=== PATIENT | female | born 1960 | race Caucasian/White ===

== ENCOUNTER → 2025-02-23 14:12 | Outpatient (REF) | payer OTHER, SELFPAY | LOC: WDC 14:12 | PROVIDERS: ATTENDING PHYSICIAN Obstetrics & Gynecology Gynecology; FAMILY PHYSICIAN Family Medicine | DX: Z12.31 Encounter for screening mammogram for malignant neoplasm of breast (principal) | CPT/HCPCS: 77063; 77067 ==

== ENCOUNTER 2025-04-05 00:12 | Emergency (ER) | payer OTHER, SELFPAY ==
[2025-04-05 00:14] VITALS: BP 190/106
[2025-04-05 00:43] VITALS: BMI 29.0
[2025-04-05 00:44] VITALS: BP 187/99
--- NOTE | 2025-04-05 00:46 | EDRN ---
Pt complains of heartburn that started around 2300. Pt drank water and sucked on a Tums but had to brush her teeth so she did not finish the Tums. Pt adds she has had neck pain all week. Pain is constant. Pt has been taking 1 advil daily for
neck pain. Pt denies injury to neck. Pain started as pain in R jaw that was intermittent then pt woke daily with neck pain 'like a heaviness on my neck.' No sob, abd pain, n/v, diaphoresis, fever/chills/cough. Pt ate hard pretzels and an apple
for dinner.
--- NOTE | 2025-04-05 00:47 | ED.GENMED ---
History of Present Illness
General
Chief Complaint: Chest Pain
Source: patient
Exam Limitations: none
Time Seen by Provider: 04/05/25 00:46
Nursing documentation reviewed up to this point in time: agreed with
History of Present Illness
History of Present Illness:
This is a 64-year-old female with no past medical history who presents emergency department today with concerns of pain/indigestion for the past 2 hours. Patient reports that she had dinner and then went to bed a few hours later and reports that
she woke up at around 11 PM with this pain. The pain seems to be worse with lying down and improves with sitting up. Patient reports that she has heartburn from time to time but she has never had this severe before. She did take a dose of Tums
which did not improve her symptoms. She denies any radiation of the pain to the back into the chest. Patient was concerned that she was having something wrong with her heart as she started to develop left-sided jaw pain as well that has since
subsided. She also states that she has been having posterior neck pain for the past week but denies any obvious inciting injury. She denies any associated headaches, nausea, vomiting. She has no personal history of cardiac disease but does have a
history of coronary disease in her mom and her sister. She does not smoke. She follows regularly with her primary care provider and states that she has no known history of high cholesterol or high blood pressure and states that she does have
whitecoat hypertension does not currently take any medication to control her blood pressure. Patient denies any rectal bleeding. She denies any dark tarry stools. She denies any regular NSAID use.
Review of Systems
Review of Systems
All Other Systems: ROS reviewed and negative except as documented in HPI and ROS
Phy Exam
Physical Exam
Physical Exam:
General: Patient is well appearing and in no acute distress; non-toxic
Skin: Warm and dry, no rashes or lesions
Head: Normocephalic, atraumatic
Eyes: Sclera non-icteric. EOMs intact.
Cardiac: Regular rate and rhythm, no murmurs
Pulm: Normal respiratory effort, no wheezes, rales, or rhonchi
Abdomen: Epigastric abdominal tenderness to palpation, negative Correia's sign
Neuro: CN II-XII intact, no focal neurologic deficits.
Psychiatric: Appropriate mood and affect.
Scores
Heart Score for Chest Pain Patients
STEMI patient?: No
History: Slightly or Non-Suspicious
ECG: Normal
Age: >45 - <65 years
Risk Factors: No Risk Factors
Troponin: </= Normal Limit
Heart Score for Chest Pain Patients: 1
Heart Score Risk: 2.5% MACE over next 6 weeks
Course
Orders/Labs/Results
Orders:
Orders
04/05/25 00:13
ECG [Electrocardiogram (*1)] Urgent
Reason for Study: Chest Pain
04/05/25 00:14
EKG- Treatment ONCE
04/05/25 00:56
Add On- LAB Urgent
Tests Added?: lipase
Complete Blood Count/With Diff Urgent
Comprehensive Metabolic Panel Urgent
Lipase Urgent
Comment: ADD ON
Troponin I Urgent
US Abdomen Complete/Upper Urgent
Reason For Exam: epigastric pain
04/05/25 00:57
Famotidine [Pepcid] 20 mg IV NOW STA
Pantoprazole [Protonix IV] 40 mg IV NOW STA
04/05/25 03:07
Ketorolac [Toradol] 15 mg IV NOW STA
04/05/25 03:20
Electrocardiogram (*1) Urgent
Reason for Study: Chest Pain
Abnormal Lab Results
04/05/25
00:56
MCH 31.4 H pg
(27.0-31.0)
Glucose 118 H mg/dl
(70-99)
04/05/25 00:56
04/05/25 00:56
Vital Signs
Initial and Last Documented VS:
Initial Vital Signs
Temp Pulse Resp BP Pulse Ox
97.8 F 80 20 190/106 98
04/05/25 00:14 04/05/25 00:14 04/05/25 00:14 04/05/25 00:14 04/05/25 00:14
Last Documented Vital Signs
Temp Pulse Resp BP Pulse Ox
97.8 F 70 15 155/87 95
04/05/25 00:14 04/05/25 03:30 04/05/25 03:30 04/05/25 03:30 04/05/25 01:00
MDM/Problems Addressed
Differential Diagnosis Includes:
Differentials include gastritis, duodenitis, GERD, ACS, pancreatitis, biliary colic
MDM/Problems Addressed:
64-year-old female presents emergency department today with concerns of epigastric pain which patient describes as indigestion. Patient has no cardiac history. Physical exam she is well-appearing in no acute distress she does have epigastric
tenderness to palpation with no guarding. Her abdominal ultrasound reveals multiple gallstones and sludge, as well as mild wall thickening however no pericholecystic fluid. Patient has no fever, normal white count, no vomiting, and her pain is
well-controlled, not suspect acute cholecystitis but rather biliary cholic. Did offer admission to continue to monitor patient's symptoms however patient states that she feels well enough to go home and will call to schedule follow-up with general
surgery. Return precautions discussed. Patient stable for discharge.
*Pulse Oximetry
Patient hypoxic: no
*EKG
Interpreted by ED Provider?: Yes
EKG Intrepretation Date: 04/04/25
Interpretation: normal
Comparison EKG: no comparison EKG present
Heart Rate: 89
Rate: normal
Rhythm: sinus
[place]: normal axis
*Critical Care Note
Total Time (30-74mins, 75-104mins- exclusive of procedures): Not Applicable
Data Reviewed
Review of Other/Old Records Reveals: Records (No previous ER physician documentation in [facility] to review, no discharge summary to review)
Patient Management
Escalation/DeEscalation of care consider admission/obs:
Admit not indicated, patient stable for discharge
Case discussed with ER attending
ED Attending Note
-
Portions of this chart may have been created with voice recognition software.� Occasional wrong word or��sound alike� substitutions may have occurred due to the inherent limitations of voice recognition software.
Discharge Plan
Departure
Patient Disposition: Home (Routine Discharge)
Date of Disposition: 04/05/25
Time of Disposition: 03:28
Patient with high blood pressure during this ER visit?: Yes
Condition: Good
Discharge Problem:
Biliary colic
Instructions: Gallstones - ED discharge instructions, BLOOD PRESSURE
Prescriptions:
No Action
oxybutynin chloride 15 mg Tablet Extended Release 24hr
15 mg PO Q48H
loratadine [Claritin] 10 mg Tablet
10 mg PO DAILY
Theracran
1 cap PO DAILY
Patient Comments:
pt unsure of mg
cholecalciferol (vitamin D3)
1 cap PO Q48H
Patient Comments:
pt does not know units
Referrals:
Twan Brothers MD [Active] - Call in 1-3 days for appt
Devang Hines MD [Family Provider] -
Activity Restrictions/Additional Instructions:
You were given a copy of your ultrasound.
Please follow-up with your primary care provider.
Please call the attached number to schedule follow up appointment with general surgery.
Avoiding fatty or greasy meals may help manage your symptoms.
DISCUSSED, PLEASE RETURN TO THE EMERGENCY DEPARTMENT SHOULD YOU DEVELOP FEVERS OR CHILLS, ACUTE WORSENING OF YOUR SYMPTOMS, INTRACTABLE NAUSEA OR VOMITING, YELLOWING OF THE SKIN OR EYES, CHEST PAIN, SHORTNESS OF BREATH, OR ANY OTHER SIGNS OR
SYMPTOMS RECENTLY.
Interventions
Interventions:
*Risk Screen - Suicide Last Done: 04/05/25 00:23
*General Assessment Last Done: 04/05/25 00:43
*Neglect/Abuse Screening Last Done: 04/05/25 00:23
*ED- Fall Risk Assessment Last Done: 04/05/25 01:11
*ED COVID-19 Vaccine History Last Done: 04/05/25 00:43
*Nursing Disposition Last Done: 04/05/25 03:40
ED- Cardiac Assessment Last Done: 04/05/25 01:00
Discharge Date and Time
Discharge Date/Time: 04/05/25 03:40
Print Language: TAJIK
[2025-04-05 01:00] VITALS: BP 191/98
[2025-04-05] MEDS: PROTONIX IV 40 MG IV (01:03)
[2025-04-05] MEDS: PEPCID 20 MG IV (01:06)
[2025-04-05 01:11] LABS: % Basophils 0.7 % (0-2); % Eosinophils 3.5 % (0-6); % Immature Granulocytes 0.4 % (0-0.5); % Lymphocytes 38.9 % (20.5-51.1); % Monocytes 6.7 % (1.7-9.3); % Neutrophils 49.8 % (42.2-75.2); Absolute Basophils 0.1 10^3/uL (0-0.2); Absolute Eosinophils 0.2 10^3/uL (0-0.7); Absolute Lymphocytes 2.7 10^3/uL (1.2-3.4); Absolute Monocytes 0.5 10^3/uL (0.1-0.6); Absolute Neutrophils 3.4 10^3/uL (1.4-6.5); Hematocrit 39.8 % (37.0-47.0); Hemoglobin 14.4 g/dL (12.0-16.0); Mean Corp Hgb Conc. 36.2 g/dL (33.0-37.0); Mean Corpuscular Hgb 31.4 pg (27.0-31.0); Mean Corpuscular Volume 86.7 fL (81.0-99.0); Mean Platelet Volume 9.3 fL (7.4-10.4); Nucleated Red Blood Cells % 0 %; Platelet Count 185 10^3/uL (130-400); Red Blood Cell Count 4.59 10^6/uL (4.20-5.40); Red Cell Dist. Width 12.2 % (11.5-14.5); White Blood Cell Count 6.9 10^3/uL (4.8-10.8)
[2025-04-05 01:22] LABS: ALT (SGPT) 26 U/L (0-35); AST (SGOT) 22 U/L (14-36); Albumin 4.7 g/dl (3.5-5.0); Alkaline Phosphatase 78 U/L (38-126); Blood Urea Nitrogen 14 mg/dl (7-17); Calcium 9.2 mg/dl (8.4-10.2); Carbon Dioxide 25 mmol/L (22-30); Chloride 105 mmol/L (98-107); Estimated Creatinine Clearance 90 ml/min; Glucose 118 mg/dl (70-99); Potassium 3.9 mmol/L (3.5-5.1); Sodium 142 mmol/L (135-145); Total Bilirubin 0.7 mg/dl (0.2-1.3); Total Protein 7.4 g/dl (6.3-8.2); eGFR > 60.00
[2025-04-05 01:27] LABS: Lipase 154 U/L (23-300)
[2025-04-05 01:33] LABS: Troponin I < 0.012 ng/ml
[2025-04-05 02:50] VITALS: BP 177/84
[2025-04-05] MEDS: TORADOL 15 MG IV (03:15)
[2025-04-05 03:30] VITALS: BP 155/87
== END 2025-04-05 03:40 | disposition home or self-care (01) ==
LOC: EMR 00:12
PROVIDERS: EMERGENCY PHYSICIAN Emergency Medicine; FAMILY PHYSICIAN Family Medicine
DX: K80.70 Calculus of gallbladder and bile duct without cholecystitis without obstruction (principal); R03.0 Elevated blood-pressure reading, without diagnosis of hypertension
CPT/HCPCS: 99285; 96374; 96375 ×2; 76700; 80053; 83690; 84484; 85025; 93005

== ENCOUNTER 2025-04-07 06:16 | Inpatient (IN) | payer OTHER, SELFPAY ==
[2025-04-06 20:37] VITALS: BP 155/106
[2025-04-06 23:10] VITALS: BP 148/88
[2025-04-07] VITALS (7 sets, daily range): BP systolic 154–172; BP diastolic 81–95; BMI 29.0; BMI 28.4
[2025-04-07 00:04] LABS: % Basophils 0.4 % (0-2); % Eosinophils 0.6 % (0-6); % Immature Granulocytes 0.2 % (0-0.5); % Lymphocytes 10.5 % (20.5-51.1); % Monocytes 4.1 % (1.7-9.3); % Neutrophils 84.2 % (42.2-75.2); Absolute Eosinophils 0.1 10^3/uL (0-0.7); Absolute Lymphocytes 0.9 10^3/uL (1.2-3.4); Absolute Monocytes 0.3 10^3/uL (0.1-0.6); Absolute Neutrophils 6.9 10^3/uL (1.4-6.5); Hematocrit 41.9 % (37.0-47.0); Hemoglobin 14.7 g/dL (12.0-16.0); Mean Corp Hgb Conc. 35.1 g/dL (33.0-37.0); Mean Corpuscular Hgb 31.1 pg (27.0-31.0); Mean Corpuscular Volume 88.8 fL (81.0-99.0); Mean Platelet Volume 9.3 fL (7.4-10.4); Nucleated Red Blood Cells % 0 %; Platelet Count 182 10^3/uL (130-400); Red Blood Cell Count 4.72 10^6/uL (4.20-5.40); Red Cell Dist. Width 12.3 % (11.5-14.5); White Blood Cell Count 8.3 10^3/uL (4.8-10.8)
[2025-04-07 00:27] LABS: ALT (SGPT) 718 U/L (0-35); AST (SGOT) 707 U/L (14-36); Albumin 4.3 g/dl (3.5-5.0); Alkaline Phosphatase 169 U/L (38-126); Blood Urea Nitrogen 13 mg/dl (7-17); Calcium 10.1 mg/dl (8.4-10.2); Carbon Dioxide 30 mmol/L (22-30); Chloride 100 mmol/L (98-107); Glucose 131 mg/dl (70-99); Potassium 4.1 mmol/L (3.5-5.1); Sodium 139 mmol/L (135-145); Total Bilirubin 5.9 mg/dl (0.2-1.3); Total Protein 7.5 g/dl (6.3-8.2); eGFR > 60.00
[2025-04-07 01:21] LABS: Lipase > 4000 U/L (23-300)
--- NOTE | 2025-04-07 02:06 | ED.GENMED ---
History of Present Illness
General
Chief Complaint: Abdominal Pain
Source: patient and records
Exam Limitations: none
Time Seen by Provider: 04/07/25 01:51
Nursing documentation reviewed up to this point in time: agreed with
History of Present Illness
History of Present Illness:
64-year-old female with past medical history of gallstones presents emergency department today with persistent epigastric pain for the past 4 days. She initially seen by me in the emergency department on April 05 and she was found to have some
gallbladder wall thickening and gallstones but no clear evidence of acute cholecystitis no evidence of obstruction. Her pain was well-controlled at the time, did offer admission but discussed close return precautions. Patient presents today and
she states that her pain is never gone away. She denies any fevers or chills. She started to notice that her urine appears dark. She has any burning with urination. She denies any chest pain or shortness of breath. She denies any syncopal
episodes.
Review of Systems
Review of Systems
All Other Systems: ROS reviewed and negative except as documented in HPI and ROS
Phy Exam
Physical Exam
Physical Exam:
General: Patient is well appearing and in no acute distress; non-toxic
Skin: Warm and dry, no rashes or lesions
Head: Normocephalic, atraumatic
Eyes: Sclera non-icteric. EOMs intact.
Cardiac: Regular rate and rhythm, no murmurs
Peripheral Vascular: No lower extremity swelling or edema
Pulm: Normal respiratory effort, no wheezes, rales, rhonchi
Abdomen: Epigastric abdominal tenderness to palpation, no rebound tenderness, no guarding
Neuro: CN II-XII intact, no focal neurologic deficits.
Psychiatric: Appropriate mood and affect.
Course
Orders/Labs/Results
Orders:
Orders
04/06/25 23:53
Complete Blood Count/With Diff Urgent
Comprehensive Metabolic Panel Urgent
Lipase Urgent
04/07/25 02:04
Ketorolac [Toradol] 15 mg IV NOW STA
04/07/25 02:05
Lactated Ringers [Lr] 1,000 ml IV BOLUS
04/07/25 02:15
CT Abd/pelvis W Iv Cont Urgent
Comment:
Reason For Exam: epigastric pain
04/07/25 Breakfast
NPO
Allow oral meds: Yes
Allow clear liquids: Sips of Clears
Flush (0.9% Sodium Chloride) [Flush (Nss)] See Dose Instructions IV PER PROTOCOL
04/07/25 06:03
Admit/Transfer Patient As Directed
Co-Sign Provider:
Level of Care: Inpatient admission
Assign to:: Medical/Surgical
Physician / Group: Michael
Diagnosis: Choledocholithiasis, Gallstone Pancreatitis
Reason for Hospitalization: Choledocholithiasis, Gallstone Pancreatitis
Expected length of stay greater than two midnights?: Yes
ELOS- Estimated Length of Stay in days: 3
I certify the patient meets the requirements for IP care: Yes
PRN Pain Medication Management As Directed
May give lesser potent ordered pain med per pt: Yes
preference::
Protocol:: Medication orders for pain may be administered in a
manner that supports deferring to patient preference
when the pt is:
- Requesting an ordered lesser potent pain medication.
Least to most potent pain medications are defined
as: acetaminophen < NSAID < tramadol < opioids
(morphine, oxycodone, hydromorphone).
- Requesting a lesser dose of the same medication IF
ORDERED.
- Requesting a less intrusive route of administration
if both routes are prescribed by the provider (PO <
IV).
04/07/25 06:04
Code Status As Directed
Resuscitation Status: Full Code
04/07/25 06:21
Acetaminophen [Tylenol] 650 mg PO Q4HPRN PRN
HYDROmorphone [Dilaudid] 0.5 mg IV Q4HPRN PRN
Ondansetron Injectable [Zofran] 4 mg IV Q6HPRN PRN
04/07/25 06:21
Consult Notification Routine
Specialty to Notify: Gastroenterology
Consult Notification Routine
Specialty to Notify: Surgical
GASTROINTESTINAL CONSULT Routine
Consulting Provider: Jaren Elizabeth
Was physician already notified: No
Reason for consult: Choledocholithiasis, Gallstone Pancreatitis
SURGICAL CONSULT Routine
Consulting Provider: Twan Brothers
Was physician already notified: No
Reason for consult: Cholelithiasis / Gallstone Pancreatitis
Activity As Directed
Activity Level: Ambulate
I/O [Intake/ Output] As Directed
Frequency: Per unit guidelines
Pneumatic Compression Sleeves As Directed
Type: Knee high
Vital Signs As Directed
Frequency: Per unit guidelines
Oxygen Therapy [O2 Therapy] [RESP] Routine
Titrate/Wean O2 to maintain O2 sat greater than (%): 94
DX Deep Vein Thrombosis Video Routine
04/07/25 07:00
Lactated Ringers [Lr] 1,000 ml IV 100 mls/hr
04/07/25 08:00
Pantoprazole [Protonix IV] 40 mg IV DAILY
Piperacillin/Tazo 3.375 Gram [Zosyn] 3.375 gram in 50 ml IV Q6H
04/08/25 06:00
Basic Metabolic Panel IN AM
Complete Blood Count/No Diff IN AM
LFT [Hqloo-Uyep-Inhlgtq] IN AM
Abnormal Lab Results
04/06/25
23:53
MCH 31.1 H pg
(27.0-31.0)
Absolute Neuts (auto) 6.9 H 10^3/uL
(1.4-6.5)
Absolute Lymphs (auto) 0.9 L 10^3/uL
(1.2-3.4)
Neutrophils % 84.2 H %
(42.2-75.2)
Lymphocytes % 10.5 L %
(20.5-51.1)
Glucose 131 H mg/dl
(70-99)
Total Bilirubin 5.9 H D mg/dl
(0.2-1.3)
AST 707 H* U/L
(14-36)
ALT 718 H* U/L
(0-35)
Alkaline Phosphatase 169 H U/L
(38-126)
Lipase > 4000 H* U/L
(23-300)
04/06/25 23:53
04/06/25 23:53
Vital Signs
Initial and Last Documented VS:
Initial Vital Signs
Temp Pulse Resp BP Pulse Ox
98.5 F 100 16 155/106 95
04/06/25 20:37 04/06/25 20:37 04/06/25 20:37 04/06/25 20:37 04/06/25 20:37
Last Documented Vital Signs
Temp Pulse Resp BP Pulse Ox
98.6 F 100 18 160/95 96
04/07/25 02:43 04/07/25 02:43 04/07/25 02:43 04/07/25 02:45 04/07/25 02:46
MDM/Problems Addressed
Differential Diagnosis Includes:
Differentials include acute cholecystitis, pancreatitis, gastritis,
MDM/Problems Addressed:
64-year-old female with past medical history of gallstones presents emergency department today with persistent epigastric pain for the past 4 days. She was diagnosed with gallstones few days prior. On physical exam she is well-appearing no acute
distress. She does have epigastric tenderness to palpation. Her lipase is greater than 4000 and she has a transaminitis with total bilirubin of 5.9. Her CT scan demonstrates a distended gallbladder with a gallstone near the fundus and wall
thickening however could represent systemic liver disease versus acute cholecystitis, in addition patient has normal-appearing pancreas, she has no fever her white count is normal. Discussed findings with my attending. Patient will require
admission for MRCP and further workup
*Pulse Oximetry
Patient hypoxic: no
*Critical Care Note
Total Time (30-74mins, 75-104mins- exclusive of procedures): Not Applicable
Data Reviewed
Review of Other/Old Records Reveals: Records (Reviewed ER physician documentation from 04/05/2025 by me patient seen for biliary colic)
Source: patient and records
ED Attending Note
-
Portions of this chart may have been created with voice recognition software.� Occasional wrong word or��sound alike� substitutions may have occurred due to the inherent limitations of voice recognition software.
Discharge Plan
Departure
Patient Disposition: Admit
Date of Disposition: 04/07/25
Time of Disposition: 04:40
Admit to: Med/Surg
Presentation/result/management discussed w/ accepting MD/DO: Hospitalist
Condition: Fair
Discharge Problem:
Acute pancreatitis, Biliary obstruction
Interventions
Interventions:
*Risk Screen - Suicide Last Done: 04/06/25 20:37
*General Assessment Last Done: 04/06/25 20:37
*Neglect/Abuse Screening Last Done: 04/06/25 20:37
*ED- Fall Risk Assessment Last Done: 04/06/25 20:37
*ED COVID-19 Vaccine History Last Done: 04/06/25 20:37
JI-Khmcuv-Aaxtjtxljk Assessment Last Done: 04/07/25 02:40
[2025-04-07] MEDS: LR 1000 IV ×3 (02:37→18:25)
[2025-04-07] MEDS: TORADOL 15 MG IV (02:38)
--- NOTE | 2025-04-07 06:05 | HPS.HSE ---
Family Physician
-
Family Physician: Devang Boles [facility]
Chief Complaint
-
Abd pain
History of Present Illness
Patient is a 64y F with PMH significant for OAB who presents to ED complaining of abdominal pain. Patient initially developed abdominal pain on Saturday evening. She was seen here in the ED and found to have evidence of gallstones. Her symptoms
improved while in the ED and she was discharged to home with instructions to follow-up with surgery. Patient states that she felt fairly well on Saturday; however, her pain returned and persisted for most of the day Saturday. Pain became more severe
with radiation into the back and increased pain with deep breathing or movement.
Patient denies any N/V, fevers / chills, diarrhea, etc.
She presented to the ED this evening for further evaluation.
Medical History
Past Medical History
Past Medical History: Reports Other
Additional Past Medical History:
OAB
Cholelithiasis
Past Surgical History: Reports Other
Additional Past Surgical History:
Hernia repair x 2
Social History
Tobacco: Non-smoker
Alcohol: Occasional
Drug: None
Family History
Family History: Not pertinent
Allergies / Home Medications
Allergies reflects when Allergies were last updated in [employer].
Home Medications with original date entered in [employer]
Allergy/Medication List:
Allergies
Allergy/AdvReac Type Severity Reaction Status Date / Time
No Known Allergies Allergy Unverified 04/05/25 00:44
Home Medications
Theracran 1 cap PO DAILY 04/05/25
cholecalciferol (vitamin D3) 1 cap PO Q48H 04/05/25
loratadine 10 mg tablet (Claritin) 10 mg PO DAILY 04/05/25
oxybutynin chloride 15 mg tablet,extended release 24 hr 15 mg PO Q48H 04/05/25
Review of Systems
-
History Source: Patient
A 12 point ROS was completed and negative except as noted: Yes
Constitutional: Denies Fever or Chills
Respiratory: Denies Cough or Trouble Breathing
Cardiac: Denies Chest Pain or Palpitations
Abdomen/GI: Reports Abdominal Pain; Denies Nausea, Vomiting or Diarrhea
: Reports Flank Pain; Denies Dysuria or Frequency
Musculoskeletal: Denies Joint Pain or Edema
Neurological: Denies Dizzy or Headache
Physical Exam
Vital Signs
Vital Signs
Temp Pulse Resp BP Pulse Ox
98.6 F 100 18 160/95 96
04/07/25 02:43 04/07/25 02:43 04/07/25 02:43 04/07/25 02:45 04/07/25 02:46
Physical Exam
General: Other (64y F in no acute distress.)
HEENT: Moist mucous membranes and PERRLA
Respiratory: Clear; No Wheezes, Rales or Rhonchi
Cardiac: S1/S2 and Tachycardia; No Murmur
GI: Soft, Non Distended, Normal Bowel Sounds and Other (Pos RUQ tenderness / No guarding or rebound.)
Musculoskeletal: No Clubbing, No Cyanosis and No Edema
Neuro: AO x 3
Laboratory Results
-
04/06/25 23:53
04/06/25 23:53
Laboratory Results
Total Bilirubin 5.9 mg/dl (0.2-1.3) H D 04/06/25 23:53
AST 707 U/L (14-36) H* 04/06/25 23:53
ALT 718 U/L (0-35) H* 04/06/25 23:53
Alkaline Phosphatase 169 U/L (38-126) H 04/06/25 23:53
Lipase > 4000 U/L (23-300) H* 04/06/25 23:53
Impression/Plan
-
A/P: Patient is a 64y F with PMH significant for OAB who presents to ED complaining of abdominal pain.
Cholelithiasis / Choledocholithiasis
Gallstone Pancreatitis
+/- Acute Cholecystitis
- Admit for further evaluation and treatment.
- US done 04/05 showed stones and sludge without wall thickening, etc. CBD was 9.8mm.
- CT done today shows stone near fundus, wall thickening up to 1 cm and CBD = 10mm.
- LFTs were normal on 04/05 and now significantly abnormal including bili = 5.9.
- NPO, IVFs, pain control, supportive care.
- GI and Surgery evaluations for additional recommendations.
- Follow for any new / worsening symptoms.
- Will cover with Zosyn for now given wall thickening, tachycardia, etc.
OAB
- Stable. Hold PO meds including oxybutynin acutely.
DVT Prophylaxis: SCDs
Code Status: Full
--- NOTE | 2025-04-07 07:39 | CON.GI ---
Addendum entered and electronically signed by Jaren Elizabeth MD 04/07/25 12:56:
I saw and examined the patient.
The MACHINERY CLEANER's note was reviewed and I agree with the note.
--Abdominal pain/elevated LFTs/lipase/imaging showing dilated CBD and cholelithiasis with GB wall thickening and pericholecystic fluid
plan
NPO
Continue IVF
continue antibiotics started by medical team for now
Will get MRI/MRCP for further evaluation of CBD dilatation and rule out CBD stone. If positive for CBD stone will arrange ERCP prior to cholecystectomy
Surgical eval
Continue trend LFT
Original Note:
Consultation
-
Date/Time Consultation Requested: 04/07/25 0620
Date/Time Consultation Performed: 04/07/25 0800
Requesting Provider: Александр Rodriguez DO
Performing Provider: SWETA Vinson, Jaren Elizabeth MD
Reason for Consultation: abdominal pain, increased LFT's
Medical History
Chief Complaint / HPI
Chief Complaint: abdominal pain
History of Present Illness:
Pt is a 64yo with hx colon polyps, overactive bladder on Oxybutynin presents with onset of GERD, abdominal pain, chest and neck pain. She was initially was seen 04/05 with normal LFT's and lipase with negative troponin. She was given Toradol, PPI and
Famotidine with improvement. She was discharged but had recurrent symptoms. On return she was noted with bili 5.9, AST 707, ALT 718, alk phos 169 and lipase >4000. WBC's normal with low grade fever. 04/05 initial US with multiple gallstones,
sludge, distended GB without wall thickening and neg correia sign, CBD 9.8mm with fatty liver. Repeat imaging with Ct on return with cholelithiasis with distention of gallbladder of wall and pericholecystic fluid CB D 1 cm suggest acute
cholecystitis , fatty liver and diverticulosis. No anticoagulation and rare NSAID use. No GPL1 use. No recent change in diet.
At this time pt states some improved pain to 3/10 was 8/10 at peak. She also admits to dark urine, rodriguez loose stools last week but denies odynophagia, dysphagia, nausea, vomiting, constipation or rectal bleeding.
Past Medical History
Past Medical History: Other (cholelithiasis, overactive bladder , colon polyps)
Past Surgical History: Other (hernia repair x 2 )
Social History
Tobacco: Non-Smoker
Alcohol: Occasional
Drug: None
Living: With Family
Employment: Not Employed
Family History
Family History: Other (mother and sister with hx andre)
Allergies / Home Medications
Allergy/AdvReac Type Severity Reaction Status Date / Time
No Known Allergies Allergy Unverified 04/05/25 00:44
�Medication �Instructions �Recorded
Theracran 1 cap PO DAILY 04/05/25
cholecalciferol (vitamin D3) 1 cap PO Q48H 04/05/25
loratadine 10 mg tablet (Claritin) 10 mg PO DAILY 04/05/25
oxybutynin chloride 15 mg 15 mg PO Q48H 04/05/25
tablet,extended release 24 hr
Review of Systems
-
History Source: Patient and Family
Constitutional: Reports Fever (low grade )
EENT: Reports No Symptoms
Respiratory: Reports No Symptoms
Cardiac: Reports Chest Pain (at onset with neck pain)
Abdomen/GI: Reports Abdominal Pain, Diarrhea (last week loose and rodriguez) and Other (increased GED)
: Reports Dark Urine
Musculoskeletal: Reports No Symptoms
Skin: Reports No Symptoms
Neurological: Reports No Symptoms
Endocrine: Reports No Symptoms
Hematologic/Lymphatic: Reports No Symptoms
Vital Signs
Temp Pulse Resp BP Pulse Ox
98.6 F 100 18 160/95 96
04/07/25 02:43 04/07/25 02:43 04/07/25 02:43 04/07/25 02:45 04/07/25 02:46
Physical Exam
Exam
General: Well Developed, Well Nourished and No Apparent Distress
HEENT: Normocephalic and Anicteric
Respiratory: Clear
Cardiac: Other (tachy)
GI: Soft, Non Distended and Tender (epigastric )
Musculoskeletal: No Clubbing and No Cyanosis
Skin: Warm and Dry
Neuro: Awake, Alert and AO x 3
Psych: Calm
Results
WBC 8.3 10^3/uL (4.8-10.8) 04/06/25 23:53
Hgb 14.7 g/dL (12.0-16.0) 04/06/25 23:53
Hct 41.9 % (37.0-47.0) 04/06/25 23:53
MCV 88.8 fL (81.0-99.0) 04/06/25 23:53
Plt Count 182 10^3/uL (130-400) 04/06/25 23:53
Absolute Neuts (auto) 6.9 10^3/uL (1.4-6.5) H 04/06/25 23:53
Sodium 139 mmol/L (135-145) 04/06/25 23:53
Potassium 4.1 mmol/L (3.5-5.1) 04/06/25 23:53
Chloride 100 mmol/L (98-107) 04/06/25 23:53
Carbon Dioxide 30 mmol/L (22-30) 04/06/25 23:53
BUN 13 mg/dl (7-17) 04/06/25 23:53
Creatinine 0.8 mg/dL (0.6-1.0) 04/06/25 23:53
Calcium 10.1 mg/dl (8.4-10.2) 04/06/25 23:53
Total Bilirubin 5.9 mg/dl (0.2-1.3) H D 04/06/25 23:53
AST 707 U/L (14-36) H* 04/06/25 23:53
ALT 718 U/L (0-35) H* 04/06/25 23:53
Alkaline Phosphatase 169 U/L (38-126) H 04/06/25 23:53
Lipase > 4000 U/L (23-300) H* 04/06/25 23:53
Diagnostic Image Results:
04/05/ US abdomen
Multiple small gallstones as well as a small amount of mobile sludge. Gallbladder is distended, with no evidence for gallbladder wall thickening and a negative sonographic Correia's sign.
Common bile duct is dilated, measuring up to 9.8 mm. No sonographic evidence for bile duct calculus.
Diffuse fatty infiltration of the liver. Mild focal fatty sparing adjacent to gallbladder fossa.
04/07/25 CT A/p
There is cholelithiasis with distention of the gallbladder thickening of the wall and pericholecystic fluid. Common bile duct is dilated at 1 cm. This suggests acute cholecystitis.
There is fatty infiltration of the liver
There is diverticulosis but no evidence of diverticulitis
Prior GI Procedures:
EGD: none
Colonoscopy: [address] Davis with polyps
Assessment / Plan
-
Pt is a 64yo with hx colon polyps, overactive bladder on Oxybutynin presents with onset of GERD, abdominal pain, chest and neck pain. She was initially was seen 04/05 with normal LFT's and lipase with negative troponin. She was given Toradol, PPI and
Famotidine with improvement. She was discharged but had recurrent symptoms. On return she was noted with bili 5.9, AST 707, ALT 718, alk phos 169 and lipase >4000. WBC's normal with low grade fever. 04/05 initial US with multiple gallstones,
sludge, distended GB without wall thickening and neg correia sign, CBD 9.8mm with fatty liver. Repeat imaging with Ct on return with cholelithiasis with distention of gallbladder of wall and pericholecystic fluid CB D 1 cm suggest acute
cholecystitis , fatty liver and diverticulosis. No anticoagulation and rare NSAID use. No GPL1 use. No recent change in diet.
-sudden onset abdominal pain with elevated LFT's and lipase concern for possible gallstone pancreatitis vs acute cholecystitis
-CBD dilation on imaging
-cholelithiasis
-low grade fever
-fatty liver
-hx colon polyps
-overactive bladder
PLAN:
Etiology of symptoms with concern for possible gallstone pancreatitis vs acute cholecystitis vs other
US and CT with ductal dilation and cholelithiasis
will order MRI with MRCP add ativan prior to claustrophobia(discussed alternative EUS(uable to do today) vs IOC)
trend labs
await surgical eval
cont abx
aggressive IVF s/p bolus just given in ER will increase IVF to 150ml/hr
pain control
family updated
-
-
Thank you for consultation and allowing me to participate in the patient's care. Please call the phone triage specialist GI physician during the after hours with any questions or concerns.
[2025-04-07] MEDS: PROTONIX IV 40 MG IV (08:26)
[2025-04-07] MEDS: ZOSYN 50 IV ×3 (08:27→19:40)
--- NOTE | 2025-04-07 08:40 | W.PN.HOSP.TC ---
Today's Communication/Plan
-
F/u with GI
MRI pending
Assessment / Plan
Assessment / Plan
Gallstone pancreatitis
Acute Cholecystitis with cholelithiasis:
- Abdominal US done 04/05 showed gallstones/ sludge/negative sonographic Correia sign without wall thickening/CBD was 9.8mm.
- Abdominal CT 04/07 shows stone near fundus, wall thickening up to 1 cm and CBD = 10mm.
- LFTs were normal on 04/05 and now bilirubin is 5.9, AST is 707, and ALT is 718
- Continue IV zoysn, NPO, IVFs with lactated ringers, pain control with Dilaudid and Tylenol, supportive care.
- MRI ordered by GI for better visualization of common bile duct and for assessment of future treatment modalities. Concerned for gallstone pancreatitis due to lab/imagining findings.
- Based on patients clinical presentation, labs, and imaging findings on CT, will plan for laparoscopic cholecystectomy once ERCP has been confirmed/ performed. Will explain to patient risks/benefits of procedure.
Overactive bladder:
- Hold oxybutynin
Anticipated Discharge: 24 - 48 hours
Subjective/Interval History
-
Date of Service: April 07, 2025
Pt is a 64 year old female with overactive bladder presents with severe right upper quadrant abdominal pain. She initially presented on 04/05/25 with severe upper abdominal pain a few hours after eating dinner with radiation to her jaw, however EKG
was negative, labs showed normal bilirubin, LFT's, and an abdominal ultrasound showed multiple gallstones with thickening of CBD to 9.8 mm. She was then discharged home with instructions to call surgery and schedule f/u with general surgery. The
next day she felt heartburn symptoms all day long without improvement on taking tums.
Then today morning, pain returned and it was more severe, and also started to radiate to the back. No nausea/vomiting/ fever/ chills.
Labs show normal wbc, total bili elevated at 5.9, AST 707, and AST 718
CT scan was ordered and confirms findings suggestive of acute cholecystitis.
Objective Data
-
Labs:
Laboratory Results
04/06/25
23:53
WBC 8.3
Hgb 14.7
Hct 41.9
Plt Count 182
Sodium 139
Potassium 4.1
Chloride 100
Carbon Dioxide 30
BUN 13
Creatinine 0.8
Glucose 131 H
Calcium 10.1
Total Bilirubin 5.9 H D
AST 707 H*
ALT 718 H*
Alkaline Phosphatase 169 H
Vital Signs:
Vital Signs
Temp Pulse Resp BP Pulse Ox
99.8 F 106 16 154/82 94
04/07/25 07:49 04/07/25 07:49 04/07/25 07:49 04/07/25 07:49 04/07/25 07:49
I&O
04/06/25 04/07/25 04/08/25
06:59 06:59 06:59
Intake Total 50 / 50
Balance 50 / 50
Review of Systems
-
History Source: Patient
All other systems: Reviewed and negative
Abdomen/GI: Reports Abdominal Pain (right upper quadrant pain)
Physical Exam
-
General: Well Developed
Respiratory: Clear to Auscultation; Negative Wheezes, Rales or Rhonchi
Cardiac: Regular Rhythm; Negative S1/S2, Irregular Rhythm or Murmur
GI: Soft, Nondistended, Normal Bowel Sounds and Tender (right upper quadrant tenderness on palpation)
Musculoskeletal: No Clubbing, No Cyanosis and No Edema
Skin: Warm and Dry
Neuro: Awake, Alert, Oriented and AO x 3
Psych: Calm
Data Reviewed
-
CT Scan: Report Reviewed by me and Discussed with Physician
Labs: Labs Reviewed by me and Discussed with Physician
[2025-04-07 10:22] LABS: PT 14.7 Sec (11.4-14.6)
--- NOTE | 2025-04-07 10:54 | CON.GS ---
Addendum entered and electronically signed by Twan Brothers MD 04/07/25 15:17:
I saw and examined the patient.
The resident's note was reviewed and I agree with the note with following corrections/additions.
Comment: Bounce back to ED after eval and DC 04/05 - normal labs at that time, returned 24 hrs late with elevated LFTs after recurrent upper ab pain. Presently pain has resolved. Denies f/c/n/v, denies changes to stool/urine, exam very mild ttp to
RUQ/epigastrum. Imaging shows dilated ducts, distended GB with PCF on CT. PLan for MRI to r/o choledocholithiasis. GS will follow. IV abx empirically.
Original Note:
Consultation
-
Date/Time Consultation Requested: 04/07/2025 06:21AM
Date/Time Consultation Performed: 04/07/2025 9:30 AM
Requesting Provider: Александр Sanabria
Performing Provider: Twan Hernandez
Reason for Consultation: Gallstone pancreatitis
Medical History
-
Chief Complaint: Severe abdominal pain
History of Present Illness:
Pt is a 64 year old female with overactive bladder presents with severe right upper quadrant abdominal pain. She initially presented on 04/05/25 with severe upper abdominal pain a few hours after eating dinner with radiation to her jaw, however EKG
was negative, labs showed normal bilirubin, LFT's, and an abdominal ultrasound showed multiple gallstones with thickening of CBD to 9.8 mm. She was then discharged home with instructions to call surgery and schedule f/u with general surgery. The
next day she felt heartburn symptoms all day long without improvement on taking tums.
Then today morning, pain returned and it was more severe, and also started to radiate to the back. No nausea/vomiting/ fever/ chills.
Labs show normal wbc, total bili elevated at 5.9, AST 707, and AST 718
CT scan was ordered and confirms findings suggestive of acute cholecystitis
Past Medical History
Past Medical History: Other (overactive bladder)
Social History
Tobacco: Non-Smoker
Alcohol: Occasional
Drug: None
Family History
Family History: Reviewed & Not Pertinent
Allergies / Home Medications
Allergy/AdvReac Type Severity Reaction Status Date / Time
No Known Allergies Allergy Unverified 04/05/25 00:44
�Medication �Instructions �Recorded �Confirmed �Type
cholecalciferol (vitamin D3) 25 25 mcg PO Q48H 04/05/25 04/07/25 History
mcg (1,000 unit) tablet (Vitamin
D3)
cranberry 500 mg capsule 500 mg PO DAILY 04/05/25 04/07/25 History
loratadine 10 mg tablet (Claritin) 10 mg PO DAILY 04/05/25 04/07/25 History
oxybutynin chloride 15 mg 15 mg PO Q48H@0800 04/05/25 04/07/25 History
tablet,extended release 24 hr
calcium carbonate (Tums) 200 mg PO QIDPRN PRN gerd 04/07/25 04/07/25 History
ibuprofen 100 mg chewable tablet 200 mg PO BIDPRN PRN mild pain 04/07/25 04/07/25 History
naproxen sodium 220 mg tablet 220 mg PO [id number] PRN mild pain 04/07/25 04/07/25 History
(Aleve)
Review of Systems
-
History Source: Patient
All other systems: Negative unless noted
Abdomen/GI: Abdominal Pain (epigastric abdominal pain)
A 10 point review of systems was completed, and was negative except as per HPI.
Physical Exam
Vital Signs
Temp Pulse Resp BP Pulse Ox
99.8 F 106 16 154/82 94
04/07/25 07:49 04/07/25 07:49 04/07/25 07:49 04/07/25 07:49 04/07/25 07:49
04/06/25 04/07/25 04/08/25
06:59 06:59 06:59
Actual Weight 84 kg
Body Mass Index (BMI) 29.0
Lab Results
04/06/25 23:53
04/06/25:53
WBC 8.3 10^3/uL (4.8-10.8) 04/06/25:53
Hgb 14.7 g/dL (12.0-16.0) 04/06/25:53
Hct 41.9 % (37.0-47.0) 04/06/25:53
Plt Count 182 10^3/uL (130-400) 04/06/25:
Abs Immat Gran (auto) 0.0 10^3/uL (0-0.05) 04/06/25:53
Neutrophils % 84.2 % (42.2-75.2) H 04/06/25:53
Physical Exam
General: Well Developed
Respiratory: Clear; Negative Wheezes, Rales or Rhonchi
Cardiac: S1/S2 and Regular Rhythm; Negative Murmur
GI: Soft, Non Distended, Normal Bowel Sounds and Tender (Epigastric tenderness on palpation)
Musculoskeletal: No Clubbing, No Cyanosis and No Edema
Skin: Warm and Dry
Neuro: Awake, Alert, Oriented and AO x 3
Psych: Calm
Data Reviewed
-
CT Scan: Report Reviewed by me and Discussed with Physician
Ultrasound: Report Reviewed by me and Discussed with Physician
Labs: Labs Reviewed by me and Discussed with Physician
Assessment / Plan
-
Gallstone pancreatitis
Acute Cholecystitis with cholelithiasis:
- Abdominal US done 04/05 showed gallstones/ sludge/negative sonographic Correia sign without wall thickening/CBD was 9.8mm.
- Abdominal CT 04/07 shows stone near fundus, wall thickening up to 1 cm and CBD = 10mm.
- LFTs were normal on 04/05 and now bilirubin is 5.9, AST is 707, and ALT is 718
- Continue IV zoysn, NPO, IVFs with lactated ringers, pain control with Dilaudid and Tylenol, supportive care.
- MRI ordered by GI for better visualization of common bile duct and for assessment of future treatment modalities. Concerned for gallstone pancreatitis due to lab/imagining findings.
- Based on patients clinical presentation, labs, and imaging findings on CT, will plan for laparoscopic cholecystectomy once ERCP has been confirmed/ performed. Will explain to patient risks/benefits of procedure.
Overactive bladder:
- Hold oxybutynin
--- NOTE | 2025-04-07 11:53 | W.PN.HOSP.TC ---
Today's Communication/Plan
-
Continue IV Zosyn and IVF
NPO for now
Follow-up MRCP/MRI
Plan for likely ERCP with cholecystectomy after
Trend CBC, LFTs, abdomen exam
Assessment / Plan
Assessment / Plan
#Gallstone pancreatitis
#Choledocholithiasis
#Suspected acute cholecystitis
-Presented with abdomen pain; OP ultrasound on 04/05 with cholelithiasis without wall thickening
-CT A/P on arrival shows gallstone near fundus of the gallbladder, wall thickening of 1 cm
-LFTs elevated here with bilirubin 5.9; labs were normal as of 04/05; likely dropped stone
-On arrival was made n.p.o. and started on IVF, started on IV Zosyn for possible cholecystitis
-GI recommended MRI/MRCP to assess for choledocholithiasis, likely ERCP
-General Surgery planning for cholecystectomy after GI procedures
-Continue IV Zosyn for now, follow-up MRI/MRCP; trend LFT + CBC + temp
-Continue with serial abdominal exams
-Maintenance IVF with HCT goal <44%
-Analgesics and antiemetics
#Overactive bladder
-Home regimen includes oxybutynin, held due to n.p.o. status
#H/O hernia repair x 2
Diet: N.p.o.
DVT prophylaxis: SCD
CODE STATUS: Full code
Anticipated Discharge: > 48 hours
Subjective/Interval History
-
Date of Service: April 07, 2025
Seen and examined at the bedside in the ED. No acute event since admission. AFVSS this morning
No a.m. labs to review, did have elevated transaminases and lipase yesterday
Patient states her symptoms are currently well-controlled, denies new complaints
Objective Data
-
Labs:
Laboratory Results
04/06/25 04/07/25
23:53 10:00
WBC 8.3
Hgb 14.7
Hct 41.9
Plt Count 182
PT 14.7 H
INR 1.10
Sodium 139
Potassium 4.1
Chloride 100
Carbon Dioxide 30
BUN 13
Creatinine 0.8
Glucose 131 H
Calcium 10.1
Total Bilirubin 5.9 H D
AST 707 H*
ALT 718 H*
Alkaline Phosphatase 169 H
Vital Signs:
Vital Signs
Temp Pulse Resp BP Pulse Ox
99.8 F 106 16 154/82 94
04/07/25 07:49 04/07/25 07:49 04/07/25 07:49 04/07/25 07:49 04/07/25 07:49
I&O
04/06/25 04/07/25 04/08/25
06:59 06:59 06:59
Intake Total 50 / 50
Balance 50 / 50
Review of Systems
-
History Source: Patient
All other systems: Reviewed and negative
Physical Exam
-
General: Well Developed, No Apparent Distress and Comfortable
HEENT: Normocephalic, Atraumatic, Moist Mucous Membranes and Anicteric
Respiratory: Clear to Auscultation and Non Labored Respirations; Negative Accessory Resp Muscle Use
Cardiac: Regular Rhythm and S1/S2; Negative Murmur, Rub or Gallop
GI: Soft, Nondistended, Normal Bowel Sounds and Tender (RUQ, Correia positive)
Musculoskeletal: No Clubbing, No Cyanosis and No Edema
Skin: Warm, Dry and Normal Turgor; Negative Rash
Neuro: AO x 3 and Nonfocal/Grossly Intact
Psych: Calm
Data Reviewed
-
Labs: Labs Reviewed by me, Discussed with Patient and Discussed with Family
[2025-04-07] MEDS: LR IV (13:53)
[2025-04-07] MEDS: ATIVAN 0.5 MG IV (20:53)
[2025-04-08] VITALS (8 sets, daily range): BP systolic 123–162; BP diastolic 67–89
[2025-04-08] MEDS: ZOSYN 50 IV ×2 (01:56→07:49)
[2025-04-08] MEDS: LR 1000 IV (05:10)
[2025-04-08] MEDS: NSS (PRESERVATIVE FREE) 10 ML IV (07:49)
[2025-04-08] MEDS: PROTONIX IV 40 MG IV (07:49)
[2025-04-08 09:19] LABS: % Basophils 0.4 % (0-2); % Eosinophils 2.1 % (0-6); % Immature Granulocytes 0.6 % (0-0.5); % Lymphocytes 10.2 % (20.5-51.1); % Monocytes 6.3 % (1.7-9.3); % Neutrophils 80.4 % (42.2-75.2); Absolute Eosinophils 0.1 10^3/uL (0-0.7); Absolute Lymphocytes 0.5 10^3/uL (1.2-3.4); Absolute Monocytes 0.3 10^3/uL (0.1-0.6); Absolute Neutrophils 4.2 10^3/uL (1.4-6.5); Hematocrit 36.7 % (37.0-47.0); Hemoglobin 12.9 g/dL (12.0-16.0); Mean Corp Hgb Conc. 35.1 g/dL (33.0-37.0); Mean Corpuscular Hgb 30.9 pg (27.0-31.0); Nucleated Red Blood Cells % 0 %; Red Blood Cell Count 4.17 10^6/uL (4.20-5.40); Red Cell Dist. Width 12.4 % (11.5-14.5); White Blood Cell Count 5.2 10^3/uL (4.8-10.8)
[2025-04-08 10:14] LABS: ALT (SGPT) 574 U/L (0-35); AST (SGOT) 344 U/L (14-36); Albumin 3.6 g/dl (3.5-5.0); Alkaline Phosphatase 213 U/L (38-126); Blood Urea Nitrogen 8 mg/dl (7-17); Calcium 8.6 mg/dl (8.4-10.2); Carbon Dioxide 25 mmol/L (22-30); Chloride 102 mmol/L (98-107); Estimated Creatinine Clearance 89 ml/min; Glucose 90 mg/dl (70-99); Potassium 3.6 mmol/L (3.5-5.1); Sodium 137 mmol/L (135-145); Total Bilirubin 5.7 mg/dl (0.2-1.3); Total Protein 6.2 g/dl (6.3-8.2); eGFR > 60.00
[2025-04-08 11:09] LABS: Mean Platelet Volume 9.4 fL (7.4-10.4); Platelet Count 142 10^3/uL (130-400)
--- NOTE | 2025-04-08 11:28 | W.PN.GS2 ---
Addendum entered and electronically signed by Twan Brothesr MD 04/08/25 11:41:
I saw and examined the patient.
The Roving Department Supervisor's note was reviewed and I agree with the note.
Comment: OR today for CCY. Informed consent obtained. D/w pt and . All ?s answered
Original Note:
Today's Communication / Plan
-
OR today
Assessment / Plan
-
64 yo female presenting with suspected gb mediated pancreatitis and likely acute calculous cholecystitis with CBD dilation on US/CT and elevated LFT's/lipase.
MRCP done in follow up with no choledocholithiasis present, evidence of cholecystitis present as well as severe diffuse hepatic steatosis noted.
AFVSS
No leukocytosis
LFT's remain elevated although slight downtrend today
Minimal ruq tenderness on exam
--Continue IV ABX
--NPO for OR today for RAL cholecystectomy
--Trend labs
Subjective Data
-
Date of Service: April 08, 2025
Patient seen and examined at bedside with Dr. Brothers. Denies n/v. RUQ discomfort present but manageable.
Objective Data
-
Intake and Output
04/07/25 04/08/25 04/09/25
06:59 06:59 06:59
Intake Total 1070 / 1070
Balance 1070 / 1070
Intake:
Oral fluids 120 / 120
IV fluids (Total) 900 / 900
IV piggybacks 50 / 50
Other:
Number of approximated MODERATE 1
amounts of urine
Vital Signs
Temp Pulse Resp BP Pulse Ox
99.1 F 86 16 153/89 95
04/08/25 07:50 04/08/25 07:50 04/08/25 07:50 04/08/25 07:50 04/08/25 07:50
Lab Results
04/08/25 08:21
04/08/25 08:21
Calcium 8.6 mg/dl (8.4-10.2) D 04/08/25 08:21
Total Bilirubin 5.7 mg/dl (0.2-1.3) H 04/08/25 08:21
Direct Bilirubin Cancelled 04/08/25 06:00
AST 344 U/L (14-36) H 04/08/25 08:21
ALT 574 U/L (0-35) H* 04/08/25 08:21
Alkaline Phosphatase 213 U/L (38-126) H 04/08/25 08:21
Total Protein 6.2 g/dl (6.3-8.2) L 04/08/25 08:21
Albumin 3.6 g/dl (3.5-5.0) 04/08/25 08:21
Physical Exam
-
NAD
ABD soft, nd, mild RUQ tenderness
--- NOTE | 2025-04-08 11:31 | CM ---
Addendum entered by Ashley Robb 04/08/25 15:30:
Patient clear for d/c today
No CM needs identified at this time
Original Note:
Patient resting, spoke w/ spouse. Initial assessment completed. Patient is a 64y F with PMH significant for OAB who presents to ED complaining of abdominal pain. On room air. IV Zofran. IVF. NPO for now.
Patient resides w/ spouse in a 2ST[facility]- 2 steps to enter. Independent w/ walking and ADLs, no device required. Patient has grab bar and shower chair that was inherited w/ the house from her [id number]-gh-tcg. No SNF/HC hx reported.
Address, point of contact and insurance verified
PCP: Devang Hines
Pharmacy: [facility]
Plan: Home, no needs likely
--- NOTE | 2025-04-08 11:45 | W.PN.HOSP.TC ---
Today's Communication/Plan
-
Continue IV Zosyn
OR at 3 PM today
IV fluids
Trend LFT
Assessment / Plan
Assessment / Plan
#Gallstone pancreatitis
#Acute calculus cholecystitis
-Presented with abdomen pain; OP ultrasound on 04/05 with cholelithiasis without wall thickening
-CT A/P on arrival shows gallstone near fundus of the gallbladder, wall thickening of 1 cm
-LFTs elevated here with bilirubin 5.9; labs were normal as of 04/05; likely dropped stone
-On arrival was made n.p.o. and started on IVF, started on IV Zosyn for possible cholecystitis
-MRCP was ultimately negative for choledocholithiasis, LFTs now downtrending
-Continue IV Zosyn for now; LFTs + CBC + temp + abdominal exams
-Maintenance IVF with HCT goal <44%
-Analgesics and antiemetics
-NPO for OR today
#Fatty liver
-Differentials include NAFLD versus KIERAN, per history she is occasional alcohol consumer
-Imaging here showed diffuse and severe fatty liver disease of unclear origin
-LFTs were elevated in the context of gallstone pancreatitis, now downtrending
-Will encourage alcohol avoidance, 30 minutes aerobic activity daily, Mediterranean diet
-Can consider SGLT1i or SGLT2i as there is some evidence of benefit with NAFLD
#Overactive bladder
-Home regimen includes oxybutynin, held due to n.p.o. status
#H/O hernia repair x 2
Diet: N.p.o. for OR today
DVT prophylaxis: SCD
CODE STATUS: Full code
Anticipated Discharge: 24 - 48 hours
Subjective/Interval History
-
Date of Service: April 08, 2025
Seen and examined at the bedside. No acute events reported overnight. AFVSS as of this morning
LFTs improving. MRCP yesterday negative for choledocholithiasis. States that her abdomen pain is mild, denies new complaints
Planning for OR at 3 PM today for cholecystectomy
Objective Data
-
Labs:
Laboratory Results
04/08/25
08:21
WBC 5.2
Hgb 12.9
Hct 36.7 L
Plt Count 142 D
Sodium 137
Potassium 3.6
Chloride 102
Carbon Dioxide 25
BUN 8
Creatinine 0.7
Glucose 90
Calcium 8.6 D
Total Bilirubin 5.7 H
AST 344 H
ALT 574 H*
Alkaline Phosphatase 213 H
Vital Signs:
Vital Signs
Temp Pulse Resp BP Pulse Ox
99.1 F 86 16 153/89 95
04/08/25 07:50 04/08/25 07:50 04/08/25 07:50 04/08/25 07:50 04/08/25 07:50
I&O
04/07/25 04/08/25 04/09/25
06:59 06:59 06:59
Intake Total 1070 / 1070
Balance 1070 / 1070
Review of Systems
-
History Source: Patient
All other systems: Reviewed and negative
Physical Exam
-
General: Well Developed, Well Nourished, No Apparent Distress and Comfortable
HEENT: Normocephalic, Atraumatic, Moist Mucous Membranes and Anicteric
Respiratory: Clear to Auscultation and Non Labored Respirations; Negative Accessory Resp Muscle Use
Cardiac: Regular Rhythm and S1/S2; Negative Murmur, Rub or Gallop
GI: Soft, Nontender, Nondistended and Normal Bowel Sounds
Musculoskeletal: No Clubbing, No Cyanosis and No Edema
Skin: Warm, Dry and Normal Turgor; Negative Rash or Jaundice
Neuro: AO x 3 and Nonfocal/Grossly Intact; Negative Tremors
Psych: Calm
Data Reviewed
-
Labs: Labs Reviewed by me, Discussed with Patient and Discussed with Family
--- NOTE | 2025-04-08 11:45 | W.PN.GI.CBS2 ---
Today's Communication / Plan
-
lap andre today
Assessment / Plan
-
Pt is a 64yo with hx colon polyps, overactive bladder on Oxybutynin presents with onset of GERD, abdominal pain, chest and neck pain. She was initially was seen 04/05 with normal LFT's and lipase with negative troponin. She was given Toradol, PPI and
Famotidine with improvement. She was discharged but had recurrent symptoms. On return she was noted with bili 5.9, AST 707, ALT 718, alk phos 169 and lipase >4000. WBC's normal with low grade fever. 04/05 initial US with multiple gallstones,
sludge, distended GB without wall thickening and neg ashford sign, CBD 9.8mm with fatty liver. Repeat imaging with Ct on return with cholelithiasis with distention of gallbladder of wall and pericholecystic fluid CB D 1 cm suggest acute
cholecystitis , fatty liver and diverticulosis. No anticoagulation and rare NSAID use. No GPL1 use. No recent change in diet.
-sudden onset abdominal pain with elevated LFT's and lipase concern for possible gallstone pancreatitis vs acute cholecystitis
-CBD dilation on imaging
-cholelithiasis
-low grade fever
-fatty liver
-hx colon polyps
-overactive bladder
MRI abd 04/07
IMPRESSION:
1. Severe gallbladder distention, severe diffuse gallbladder wall thickening, cholelithiasis, and gallbladder sludge suggesting ACUTE CALCULUS CHOLECYSTITIS.
2. Mild intrahepatic and extrahepatic biliary dilatation.
3. No evidence for choledocholithiasis.
4. SEVERE DIFFUSE HEPATIC STEATOSIS.
5. Mild reactive right upper quadrant lymphadenopathy.
6. Mild chronic bilateral kidney disease.
PLAN:
Patient is awaiting lap andre today
No GI intervention at this point-no CBD stone on MRI MRCP. possible passed stone.
Continue to trend LFT
Continue surgical recommendation
Will recommend follow-up with GI as outpatient for hepatic steatosis
will s/o. Please call us back if any question
Total Time Spent with Patient (in minutes): 35
Subjective
Subjective
Date of Service: April 08, 2025
She is awaiting for brigette powell today
Objective
Data Reviewed
Laboratory Data:
Laboratory Results
04/08/25 08:21
04/08/25 08:21
Laboratory Results
PT 14.7 Sec (11.4-14.6) H 04/07/25 10:00
INR 1.10 04/07/25 10:00
Total Bilirubin 5.7 mg/dl (0.2-1.3) H 04/08/25 08:21
AST 344 U/L (14-36) H 04/08/25 08:21
ALT 574 U/L (0-35) H* 04/08/25 08:21
Alkaline Phosphatase 213 U/L (38-126) H 04/08/25 08:21
Lipase > 4000 U/L (23-300) H* 04/06/25 23:53
Vital Signs and I&O:
Vital Signs
Temp Pulse Resp BP Pulse Ox
99.1 F 86 16 153/89 95
04/08/25 07:50 04/08/25 07:50 04/08/25 07:50 04/08/25 07:50 04/08/25 07:50
I&O
04/07/25 04/08/25 04/09/25
06:59 06:59 06:59
Intake Total 1070 / 1070
Balance 1070 / 1070
Physical Exam
Physical Exam
GI: Soft, Non Distended and Non Tender
--- NOTE | 2025-04-08 14:16 | W.IMMPOSTOP ---
Surgical Immed Post Op Note
-
Primary Surgeon: Deneen
Assisting: Perico BARROS
Pre-op Diagnosis: Acute calculous cholecystitis
Post-op Diagnosis: Same
Procedure Performed: Robot assisted laparoscopic cholecystectomy
Anesthesia Type: GETA
Specimen / Cultures: Gallbladder
Estimated Blood Loss: 10cc
Complications: None immediate
Operative Findings: Distended, soft gallbladder with thickened edematous wall
--- NOTE | 2025-04-08 14:18 | OR.RPT ---
Operative Report
Operative Report
Primary Surgeon: Deneen
Assisting: Perico BARROS
Pre-op Diagnosis: Acute calculous cholecystitis
Post-op Diagnosis: Same
Procedure Performed: Robot assisted laparoscopic cholecystectomy
Anesthesia Type: GETA
Specimen / Cultures: Gallbladder
Estimated Blood Loss: 10cc
Complications: None immediate
Operative Findings: Distended, soft gallbladder with thickened edematous wall
Date of Surgery:� 04/08/25
Indications: This 64F developed acute calculous cholecystitis. Lab work showed elevated liver enzymes. Imaging showed no ductal dilation. MRI showed no choledocholithiasis. Laparoscopic cholecystectomy with robotic assist was elected.
Description of procedure: The patient was placed on the operating table in the supine position. General anesthesia was induced. A time-out was completed verifying correct patient, procedure, site, positioning, and special equipment prior to
beginning this procedure. An orogastric tube was placed. The abdomen was prepped and draped in the usual sterile fashion. A stab incision was made in left upper quadrant and the Veress needle was inserted. Proper position was confirmed by aspiration
and saline meniscus test. The abdomen was insufflated with carbon dioxide to a pressure of 12mmHg. The patient tolerated insufflation well.
A 8mm trocar was then inserted above the umbilicus. The laparoscope was inserted and the abdomen inspected. No injuries from initial trocar placement or Veress needle insertion were noted. Additional 8mm trocars were then inserted in the following
locations: two in the right lower quadrant and to the left of the umbilicus and just above. The abdomen was inspected and no abnormalities were found. The table was placed in the reverse Trendelenburg position with the right side up. The
gallbladder was distended and moderately inflamed with a thickened edematous wall. The dome of the gallbladder was grasped with an atraumatic grasper and retracted over the dome of the liver. The infundibulum was then grasped with an atraumatic
grasper and retracted toward the right lower quadrant. This maneuver exposed Calot�s triangle. The thickened edematous peritoneum overlying the gallbladder infundibulum was then incised and the cystic duct and cystic artery identified and
circumferentially dissected so that a clear view of the liver was achieved through a window between the cystic duct an cystic artery. At this time, the only two structures going into the gallbladder were the cystic artery and cystic duct. The
common bile duct was visualized with ICG and protected.
The cystic duct was then doubly clipped and divided. The cystic artery was controlled with bipolar and divided. The gallbladder was then dissected from its peritoneal attachments by electrocautery. The posterior plane was edematous. The gallbladder
was removed using an endoscopic retrieval bag placed through the umbilical port. The gallbladder was passed off the table as a specimen. The gallbladder fossa was closely monitored and checked with firefly view. There was no evidence of bleeding
from the gallbladder fossa or cystic artery or leakage of the bile from the cystic duct stump. The umbilical trocar site was closed at the fascial level with 2-0 PDS. Secondary trocars were removed under direct vision and noted to be hemostatic. The
abdomen was allowed to collapse. The skin was closed with subcuticular sutures of 4-0 monocryl and topical skin adhesive. The orogastric tube was removed.
The patient tolerated the procedure well and was taken to the postanesthesia care unit in stable condition.
--- NOTE | 2025-04-08 14:43 | W.DCSUMMARY ---
Discharge Summary
Discharge Data
Date of Admission: 04/07/25
Date of Discharge: 04/08/25
Total time spent discharging patient (in min): 31
-
Pending Results: No
Hospital Course
Discharging provider: Rashawn Pandya DO
Discharge disposition: Home
Primary Hospital diagnoses:
Acute calculus cholecystitis
Gallstone pancreatitis (spontaneous passage)
Fatty liver disease (NAFLD v KIERAN)
S/p robotic assisted laparoscopic cholecystectomy
Secondary chronic diagnoses:
Overactive bladder
Cholelithiasis
History of hernia repair x 2
Hospital course:
64-year-old female with known cholelithiasis left presents to the ED after recently being evaluated here for abdomen pain. Had ultrasound upon initial visit that showed cholelithiasis near the neck of the gallbladder. Was discharged from the ED
with follow-up scheduled however symptoms recurred and she came back to the emergency department. CT at that time showed 1 cm wall thickening of the gallbladder consistent with cholecystitis. LFTs were elevated consistent with choledocholithiasis.
Significant abdomen pain with lipase >4000, diagnosis gallstone pancreatitis. MRCP however was without signs of CBD stone, did show acute cholecystitis and signs of significant diffuse hepatic steatosis. Was started on IV Zosyn empirically,
aggressive IV fluids and made n.p.o. Trend in LFTs which downtrended spontaneously, consistent with spontaneous passage of gallstone. On day 2 of hospital stay was taken to the OR with general surgery for robotic cholecystectomy. Procedure was
successful and without complications. Monitored for 3 hours postoperatively and discharged home when determined stable. Recommend outpatient follow-up with surgery in 2 to 3 weeks. No further antibiotics needed at time of discharge. Recommend 30
minutes of aerobic exercise daily with Mediterranean diet, avoidance of EtOH as an outpatient. Could follow-up with GI for consideration of SGLT2i versus SGLT1i inhibitor for NAFLD if alcoholic related disease ruled out.
Consultants:
General Surgery: Twan Brothers MD
Gastroenterology: Jaren Cheng MD
Important imaging findings:
CT A/P with IV contrast (04/07/2025)
IMPRESSION: There is cholelithiasis with distention of the gallbladder thickening of the wall and pericholecystic fluid. Common bile duct is dilated at 1 cm. This suggests acute cholecystitis. There is fatty infiltration of the liver There is
diverticulosis but no evidence of diverticulitis
MRI/MRCP abdomen (04/07/2025)
IMPRESSION:
1. Severe gallbladder distention, severe diffuse gallbladder wall thickening, cholelithiasis, and gallbladder sludge suggesting ACUTE CALCULUS CHOLECYSTITIS.
2. Mild intrahepatic and extrahepatic biliary dilatation.
3. No evidence for choledocholithiasis.
4. SEVERE DIFFUSE HEPATIC STEATOSIS.
5. Mild reactive right upper quadrant lymphadenopathy.
6. Mild chronic bilateral kidney disease.
Procedural findings:
Robotic assisted laparoscopic cholecystectomy (04/08/2025)
Operative Findings: Distended, soft gallbladder with thickened edematous wall
Follow-up:
PCP in 1 to 2 weeks from discharge
General Surgery in 2 to 3 weeks from discharge
Discharge Plan
-
Patient Disposition: Home (Routine Discharge)
Discharge Diagnosis/Procedures: Robotic cholecystectomy
Gallstone pancreatitis
Fatty liver disease
Condition: Good
Diet: As tolerated
Additional Diets: If you have loose stools after surgery, switch to a low fat diet
Activity: No strenuous activity
Additional Activity: Do not lift over 15-20lbs for the next 2-3 weeks
Driving Restrictions: No driving for 24 hours
Bathing Restrictions: OK to Shower
Blood Work: None
Others Tests: None
Wound Care: Allow the glue to flake off your incisions on its own over the next 2-3 weeks. Avoid soaking in tubs or swimming until incisions healed.
Activity Restrictions/Additional Instructions:
After recovery from surgery, aim for 30 minutes of aerobic activity (walking, jogging, biking) daily
Avoid excess alcohol due to fatty liver (do not exceed equivalent of 1 glass of wine per day)
Follow-up with your family doctor within 1 to 2 weeks of discharge from the hospital
Instructions: Cholecystectomy - Discharge instructions
Referrals:
Twan Brothers MD [Active] - in two to four weeks
Devang Hines MD [Family Provider] -
Additional Discharge Medication Instructions: Do not take Advil (ibuprofen) and Aleve (naproxen sodium) together. Ok to take one or the other with Tylenol as needed for pain.
Can use Tylenol 975 mg every 6 hours as needed
Can use naproxen 220 mg every 12 hours as needed
Prescriptions:
Continued
oxybutynin chloride 15 mg Tablet Extended Release 24hr
15 mg PO Q48H@0800
loratadine [Claritin] 10 mg Tablet
10 mg PO DAILY
cranberry 500 mg Capsule
500 mg PO DAILY
cholecalciferol (vitamin D3) [Vitamin D3] 25 mcg (1,000 unit) Tablet
25 mcg PO Q48H
naproxen sodium [Aleve] 220 mg Tablet
220 mg PO [id number] PRN (Reason: mild pain)
calcium carbonate [Tums] 200 mg calcium (500 mg) Tablet,Chewable
200 mg PO QIDPRN PRN (Reason: gerd)
Discontinued
ibuprofen [Advil] 100 mg Tablet,Chewable
200 mg PO BIDPRN PRN (Reason: mild pain)
Discharge Orders:
Discharge Patient (As Directed); Ordered 04/08/25
Ordered By: Rashawn Pandya
Discharge Date and Time
Print Language: [id number]
[2025-04-08] MEDS: ZOSYN IV (14:49)
== END 2025-04-08 18:07 | disposition home or self-care (01) | DRG 417 ==
LOC: 4 EAST ACU 06:16
PROVIDERS: Emergency Medicine; Nurse Practitioner Adult Health; ADMITTING PHYSICIAN Hospitalist; ATTENDING PHYSICIAN Internal Medicine; CONSULT PHYSICIAN Internal Medicine Gastroenterology; CONSULT PHYSICIAN Surgery; EMERGENCY PHYSICIAN Student in an Organized Health Care Education/Training Program; FAMILY PHYSICIAN Family Medicine
PROC: 8E0W4CZ Robotic Assisted Procedure of Trunk Region, Percutaneous Endoscopic Approach (ICD-10-PCS; 2025-04-08)
PROC: 0FT44ZZ Resection of Gallbladder, Percutaneous Endoscopic Approach (ICD-10-PCS; 2025-04-08)
DX: K80.63 Calculus of gallbladder and bile duct with acute cholecystitis with obstruction (principal); K85.10 Biliary acute pancreatitis without necrosis or infection; K76.0 Fatty (change of) liver, not elsewhere classified; N32.81 Overactive bladder; K82.8 Other specified diseases of gallbladder; N28.9 Disorder of kidney and ureter, unspecified; K21.9 Gastro-esophageal reflux disease without esophagitis; Z86.0100 Personal history of colon polyps, unspecified
CPT/HCPCS: 88304; 74177; 74183; 80053; 83690; 85025; 85610; A9575; Q9967

== ENCOUNTER → 2025-05-12 07:38 | Outpatient (REF) | payer OTHER, SELFPAY | LOC: WDC 07:38 | PROVIDERS: ATTENDING PHYSICIAN Obstetrics & Gynecology Gynecology; FAMILY PHYSICIAN Family Medicine | DX: R92.2 Inconclusive mammogram (principal) | CPT/HCPCS: 76641 ==